=== PATIENT | female | born 1975 | race Two or more races ===

== ENCOUNTER 2021-06-23 16:11 | Outpatient (REF) | payer MEDICAID, SELFPAY ==
--- NOTE | ~2021-06-23 | MM_ITS ---
EXAMINATION: MM SCREENING DIGITAL BREAST TOMOSYNTHESIS, BILATERAL CLINICAL INFORMATION: Screening. Asymptomatic. The lifetime risk of breast cancer based on the Tyrer-Cuzick Model is 8%. COMPARISON: Mammography: 03/12/2017 (baseline) TECHNIQUE: Digital breast tomosynthesis is performed in both the craniocaudal and mediolateral oblique views along with computer-aided detection (CAD). Synthesized 2D images are generated from the tomosynthesis. FINDINGS: The breasts are heterogeneously dense, which may obscure small masses (ACR BI-RADS breast composition Category c). Breast tissue composition borders on heterogeneously dense. Left breast is unremarkable. There is no interval mass or architectural abnormality or developing density. Neither breast shows abnormal calcifications. The axilla and skin contours are normal. There is chronic parenchymal asymmetry central right breast on CC view, slightly increased in attenuation, likely related to summation artifact. Patient will be recalled for additional imaging. MM/MM tomosynthesis screening BI IMPRESSION: 1. Right: Parenchymal asymmetry central right breast, slightly increased in attenuation, likely summation artifact. 2. Left: No mammographic evidence of malignancy. ASSESSMENT: BI-RADS 0: Incomplete - Need Additional Imaging Evaluation RECOMMENDATION: 1. Additional views of the right breast (spot CC, rolled CC x 2). 2. Targeted ultrasound if warranted after review of the additional views. 3. Radiology department staff will contact the patient for additional imaging. This patient's information was entered into a reminder system with a target due date for their next mammogram.
== END 2021-06-23 16:12 | disposition home or self-care (01) ==
LOC: HO.MAMMO 16:11
PROVIDERS: PCP Internal Medicine; Visit Provider Internal Medicine
DX: Z12.31 Encounter for screening mammogram for malignant neoplasm of breast (principal)
CPT/HCPCS: 77063; 77067

== ENCOUNTER 2021-07-08 11:08 | Outpatient (REF) | payer MEDICAID, SELFPAY ==
--- NOTE | ~2021-07-08 | MM_ITS ---
EXAMINATION: MM DIAGNOSTIC DIGITAL BREAST TOMOSYNTHESIS, RIGHT TARGETED RIGHT BREAST ULTRASOUND CLINICAL INFORMATION: Right breast asymmetry. COMPARISON: Mammography: 06/23/2021 and 03/12/2017. TECHNIQUE: Digital breast tomosynthesis is performed. 2D images are generated from the tomosynthesis. The following views are obtained: Spot compression right breast craniocaudal view as well as rolled medial and lateral craniocaudal views. FINDINGS: The breasts are extremely dense, which lowers the sensitivity of mammography (ACR BI-RADS breast composition Category d). No specific circumscribed mass density is appreciated. There is a large amount of very dense breast parenchyma which limits evaluation. Targeted right breast ultrasound demonstrated an oval hypoechoic lesion at the 9 o'clock position approximately 6 cm from nipple measuring 1.0 x 0.5 x 0.7 cm in size. No distal sound shadowing is identified. There is minimal distal sound enhancement. Some of the circumference is mildly irregular. No internal vascularity is evident. Results are discussed with the patient at time of visit. MM/MM tomosynthesis added views R IMPRESSION: Ultrasound demonstrates a solid circumscribed but with minimally irregular margins at the 9 o'clock position of the right breast. This may represent a fibroadenoma however ultrasound-guided core biopsy is recommended due to the margins. ASSESSMENT: BI-RADS 4: Suspicious (subcategory 4A: Low suspicion for malignancy) RECOMMENDATION: Ultrasound-guided core biopsy right breast. The referring provider's office is closed today and will be notified of the above recommendation once they are reopened.
--- NOTE | ~2021-07-08 | US_ITS ---
EXAMINATION: US DIAGNOSTIC ULTRASOUND BREAST, RIGHT CLINICAL INFORMATION: Right breast asymmetry and extremely dense breast tissue. COMPARISON: Mammography of 07/08/2021, 06/23/2021, and 03/12/2017. TECHNIQUE: Ultrasound of the breast is performed with real-time truong scale imaging and color Doppler. FINDINGS: At approximately 9 o'clock position 6 cm from nipple there is a hypoechoic solid oval lesion measuring approximately 1.0 x 0.5 x 0.7 cm in size. No internal vascularity is seen. Lesion is wider than it is tall. There is minimal distal sound enhancement without distal sound shadowing. Margins are slightly irregular. No edema in soft tissue planes identified. Ultrasound-guided core biopsy is recommended. Results are discussed with the patient at time of visit. US/US breast RT limited IMPRESSION: Solid right breast density 9 o'clock position for which ultrasound-guided core biopsy is recommended. ASSESSMENT: BI-RADS 4: Suspicious (subcategory 4A: Low suspicion for malignancy) RECOMMENDATION: Ultrasound-guided core biopsy.
== END 2021-07-08 11:09 | disposition home or self-care (01) ==
LOC: HO.MAMMO 11:08
PROVIDERS: PCP Internal Medicine; Visit Provider Internal Medicine
DX: N64.89 Other specified disorders of breast (principal)
CPT/HCPCS: 76642; 77061; 77065

== ENCOUNTER 2021-07-11 09:34 | Outpatient (REF) | payer MEDICAID, SELFPAY ==
--- NOTE | ~2021-07-11 | MM_ITS ---
EXAMINATION: ULTRASOUND GUIDED CORE BIOPSY BREAST, RIGHT POST PROCEDURE DIGITAL MAMMOGRAM, RIGHT CLINICAL INFORMATION: Oval nodule 9:00 right breast on targeted ultrasound, possibly fibroadenoma. Age 46. TC score 8%. COMPARISON: Mammography 06/23/2021, 07/08/2021, targeted ultrasound 07/08/2021. FINDINGS: Proper informed consent is obtained from the patient after discussion of the procedure, potential risks and complications, and alternatives. Patient was given an opportunity for questions. The patient appeared to understand. The patient consented to the procedure and signed the consent form. GUIDANCE: Ultrasound-guided; aseptic technique. LESION: Oval hypoechoic nodule 9:00 position mid depth measuring approximately 1.0 x 0.6 cm. APPROACH: Lateral medial. ANESTHESIA: 10 mL carbonated 1% lidocaine. DERMATOTOMY: Single skin sharon dermatotomy performed. NEEDLE: 14-gauge Achieve core biopsy device with 13.5-gauge co-axial guide needle. CORES: 5. CLIP: HydroMARK; shape: open coil. POST PROCEDURE UNILATERAL DIGITAL MAMMOGRAM: The post biopsy mammogram is performed in separate room using separate digital mammography equipment from the biopsy procedure. CC and ML views are obtained.The breasts are heterogeneously dense, which may obscure small masses (breast composition category: c). The clip marker is in position. The ultrasound lesion does not correspond to the initial mammographic finding prompting recall. Additional mammographic views right breast 07/08/2021 showed no persistent mammographic finding. No gross hematoma. The patient tolerated the procedure well. No immediate complications. Home instructions reviewed with the patient. Final pathology results are pending. MM/MM diagnostic mammo unilat RT IMPRESSION: 1. Status post ultrasound-guided core biopsy right breast. 2. Clip placed: HydroMARK; shape: open coil. 3. Pathology pending. An addendum report will be issued.
[2021-07-11] MEDS: Lidocaine HCl 1 % 20 ML VIAL 9 ML SUBCUT (11:40)
[2021-07-11] MEDS: Sodium Bicarbonate 8.4% 50 MEQ/50 ML VIAL SUBCUT (11:42)
== END 2021-07-11 09:35 | disposition home or self-care (01) ==
LOC: HO.MAMMO 09:34
PROVIDERS: Visit Provider Surgery
DX: N63.15 Unspecified lump in the right breast, overlapping quadrants (principal)
CPT/HCPCS: 19083; 77065; 88305; 99202; A4648

== ENCOUNTER → 2021-07-14 15:13 | Outpatient (BNVA) | payer MEDICAID, SELFPAY | PROVIDERS: PCP Internal Medicine; Referring Provider Internal Medicine; Visit Provider Surgery | DX: Z09 Encounter for follow-up examination after completed treatment for conditions other than malignant neoplasm (principal); N63.10 Unspecified lump in the right breast, unspecified quadrant | CPT/HCPCS: 99212 ==

== ENCOUNTER → 2024-10-28 15:45 | Outpatient (BNV) | payer MEDICAID, SELFPAY | PROVIDERS: PCP Internal Medicine; Visit Provider Internal Medicine | DX: Z12.31 Encounter for screening mammogram for malignant neoplasm of breast (principal) | CPT/HCPCS: 77063; 77067 ==

== ENCOUNTER 2024-10-28 15:46 | Outpatient (REF) | payer MEDICAID, SELFPAY | END 2024-10-28 15:47 | disposition home or self-care (01) | LOC: HO.MAMMO 15:46 | PROVIDERS: PCP Internal Medicine; Visit Provider Internal Medicine | DX: Z12.31 Encounter for screening mammogram for malignant neoplasm of breast (principal) | CPT/HCPCS: 77063; 77067 ==